=== PATIENT | female | born 1950 | race African-American/Black ===

== ENCOUNTER 2023-04-24 23:16 | Emergency (ER) | payer OTHER ==
[2023-04-25] MEDS ORDERED: Lidocaine 1% w/Epinephrine 1:100K 20 ML VIAL ONE (01:04)
[2023-04-25] MEDS ORDERED: Bacitracin 1 PK ONE (01:37)
== END 2023-04-25 01:46 | disposition home or self-care (01) ==
LOC: MADERS 23:16
DX: S09.90XA Unspecified injury of head, initial encounter (principal); S01.112A Laceration without foreign body of left eyelid and periocular area, initial encounter; I10 Essential (primary) hypertension; F17.210 Nicotine dependence, cigarettes, uncomplicated; W01.198A Fall on same level from slipping, tripping and stumbling with subsequent striking against other object, initial encounter; Y93.89 Activity, other specified; Y92.89 Other specified places as the place of occurrence of the external cause; Z79.899 Other long term (current) drug therapy
CPT/HCPCS: 12011; 70450